=== PATIENT | female | born 1975 | race Caucasian/White ===

== ENCOUNTER 2017-07-03 19:44 | Emergency (ER) | payer OTHER ==
[~2017-07-03] VITALS: Ht 160 cm; Wt 79.4 kg
[2017-07-04] MEDS ORDERED: ZITHROMAX500 MG PO (03:36)
[2017-07-04] MEDS ORDERED: LEVALBUTER1.25 MG/3 IH (03:36)
[2017-07-04] MEDS ORDERED: PROMETH-CODEIN 65 ML PO (03:36)
[2017-07-04] MEDS ORDERED: BUDESONIDE0.5 MG/2 M IH (03:36)
[2017-07-04] MEDS ORDERED: MUCINEX DM ER1 EAC1 PO (03:36)
[2017-07-04] MEDS ORDERED: MEDROLPACK PO (03:36)
== END 2017-07-04 03:30 | disposition home or self-care (01) ==
LOC: ER 19:44
DX: J40 Bronchitis, not specified as acute or chronic (principal)